=== PATIENT | female | born 1975 | race Caucasian/White ===

== ENCOUNTER 2016-08-19 18:01 | Emergency (ER) | payer MEDICARE, OTHER | END 2016-08-19 18:38 | disposition home or self-care (01) | LOC: ER 18:01 | DX: M26.601 Right temporomandibular joint disorder, unspecified (principal); F17.200 Nicotine dependence, unspecified, uncomplicated; Z88.8 Allergy status to other drugs, medicaments and biological substances; Z98.51 Tubal ligation status ==